=== PATIENT | male | born 1960 | race Two or more races ===

== ENCOUNTER 2016-08-21 19:07 | Emergency (ER) | payer MEDICAID, OTHER ==
[~2016-08-21] VITALS: Ht 160 cm; Wt 65.8 kg
[2016-08-21] MEDS ORDERED: KETOROLAC TROMETH 30 MG/ML 1ML VIAL IV ONE (21:00)
[2016-08-21] MEDS ORDERED: KETOROLAC TROMETH 30 MG/ML 1ML VIAL IM ONE (21:15)
[2016-08-21 21:16] VITALS: BP 141/96
== END 2016-08-21 23:03 | disposition home or self-care (01) ==
LOC: ER 19:13
DX: S80.12XA Contusion of left lower leg, initial encounter (principal); S40.812A Abrasion of left upper arm, initial encounter; V98.8XXA Other specified transport accidents, initial encounter; Y93.01 Activity, walking, marching and hiking; Y99.8 Other external cause status; Y92.480 Sidewalk as the place of occurrence of the external cause
CPT/HCPCS: 36415; 73030; 73552; 80320; 96372; 99285; J1885